=== PATIENT | female | born 1995 | race Caucasian/White ===

== ENCOUNTER → 2018-05-21 | Outpatient (CLI) | payer BC, OTHER ==
--- NOTE | 2018-05-19 10:44 | DIAGNOSTIC IMAGING REPORT ---
R KNEE 4 OR MORE CLINICAL HISTORY: RIGHT KNEE PAIN pain COMPARISON: None. DISCUSSION: Minimal degenerative change of the medial and lateral joint compartments. Operative changes suggesting a prior anterior cruciate ligament repair. No significant joint effusion. Cortical margins are intact. There is no evidence for soft tissue swelling. IMPRESSION: Minimal/mild degenerative change medial and lateral compartments. Operative changes consistent with an anterior cruciate ligament repair. No acute process. The above report was generated using voice recognition software. It may contain grammatical, syntax or spelling errors. Electronically signed by: Wayne Post M.D. 05/19/2018 10:43 AM Dictated Date/Time: 05/19/2018 10:42 AM
== END | disposition home or self-care (01) ==
LOC: C.RDSM 10:21
PROVIDERS: ATTEND Physician Assistant
DX: M25.561 Pain in right knee (principal)